=== PATIENT | male | born 1980 | race Caucasian/White ===

== ENCOUNTER 2016-08-02 15:34 | Emergency (ER) | payer MEDICAID, MEDICARE, OTHER ==
[~2016-08-02] VITALS: Ht 175.3 cm; Wt 72.0 kg
[2016-08-02 15:35] VITALS: BP 127/70
== END 2016-08-02 16:31 | disposition home or self-care (01) ==
LOC: ER 16:02
DX: S63.8X2A Sprain of other part of left wrist and hand, initial encounter (principal); F17.200 Nicotine dependence, unspecified, uncomplicated; J45.909 Unspecified asthma, uncomplicated; Y08.89XA Assault by other specified means, initial encounter; Y93.89 Activity, other specified; Y92.89 Other specified places as the place of occurrence of the external cause; Y99.8 Other external cause status
CPT/HCPCS: 99282

== ENCOUNTER 2017-02-28 17:23 | Emergency (ER) | payer BC, MEDICARE ==
[~2017-02-28] VITALS: Ht 175.3 cm; Wt 82.0 kg
[2017-02-28 17:30] VITALS: BP 118/81
[2017-02-28] MEDS ORDERED: ALBU4TAB6 PO (17:37)
[2017-02-28] MEDS ORDERED: PREDNISONE 20MG TABLET PO STA (19:25)
[2017-02-28] MEDS ORDERED: ALBUTEROL (0.083%) 2.5MG/3ML NEB HHN STA (19:25)
[2017-02-28] MEDS ORDERED: IPRATROPIUM BROMIDE (0.02%) 0.5MG/2.5ML NEB HHN STA (19:25)
== END 2017-02-28 19:55 | disposition home or self-care (01) ==
LOC: ER 18:09
DX: J45.901 Unspecified asthma with (acute) exacerbation (principal)
CPT/HCPCS: 99283; J7512

== ENCOUNTER 2017-06-04 16:20 | Emergency (ER) | payer BC, MEDICARE ==
[~2017-06-04] VITALS: Ht 175.3 cm; Wt 82.0 kg
[~2017-06-04 16:20] MED LIST: ALBU4TAB6 PO
[2017-06-04 17:01] VITALS: BP 104/74
[2017-06-04] MEDS ORDERED: PREDNISONE 20MG TABLET PO ONE (18:45)
== END 2017-06-04 18:45 | disposition home or self-care (01) ==
LOC: ER 16:26
DX: J45.901 Unspecified asthma with (acute) exacerbation (principal); Z87.891 Personal history of nicotine dependence
CPT/HCPCS: 99283; J7512

== ENCOUNTER 2018-11-24 07:31 | Emergency (ER) | payer BC, MEDICARE ==
[~2018-11-24] VITALS: Ht 175.3 cm; Wt 76.0 kg
[2018-11-24] MEDS ORDERED: IBUPROFEN 600MG TABLET PO ONE (08:45)
[2018-11-24 09:48] VITALS: BP 130/86
== END 2018-11-24 09:51 | disposition home or self-care (01) ==
LOC: ER 07:31
DX: S00.83XA Contusion of other part of head, initial encounter (principal); M54.2 Cervicalgia; J45.909 Unspecified asthma, uncomplicated; F17.210 Nicotine dependence, cigarettes, uncomplicated; Y04.0XXA Assault by unarmed brawl or fight, initial encounter; Y93.89 Activity, other specified; Y92.831 Amusement park as the place of occurrence of the external cause
CPT/HCPCS: 70486; 99284

== ENCOUNTER 2021-01-30 12:53 | Emergency (ER) | payer MEDICARE, OTHER ==
[~2021-01-30] VITALS: Ht 175.3 cm; Wt 73.0 kg
[2021-01-30] MEDS ORDERED: ALBU05 NEB (13:54)
[2021-01-30] MEDS ORDERED: ALBU6.7H9 INH (13:54)
[2021-01-30 14:03] VITALS: BP 115/75
== END 2021-01-30 14:05 | disposition home or self-care (01) ==
LOC: ER 12:53
DX: Z76.0 Encounter for issue of repeat prescription (principal); J45.901 Unspecified asthma with (acute) exacerbation; F12.10 Cannabis abuse, uncomplicated; F17.210 Nicotine dependence, cigarettes, uncomplicated; Z98.890 Other specified postprocedural states
CPT/HCPCS: 99283